=== PATIENT | female | born 1960 | race Caucasian/White ===

== ENCOUNTER 2019-02-08 05:18 | Observation (INO) ==
--- NOTE | 2019-02-08 05:42 | Emergency Department Note ---
Disposition Clinical Impression: Abdominal pain Qualifiers: Abdominal location: left lower quadrant Qualified Code(s): R10.32 - Left lower quadrant pain Disposition: Still a Patient Forms: ED Satisfaction Letter, Work/School Release Time of Disposition: 06:57 General Adult HPI - General Stated complaint: severe pain left lower quadrant Time Seen by Provider: 02/08/19 05:34 Source: patient Limitations: no limitations Nursing Notes Reviewed: Yes Vital Signs Reviewed: Yes - History of Present Illness HPI Narrative: 58-year-old female with history of diverticulitis who presents with symptoms similar to her previous episodes of diverticulitis which were diagnosed clinically by her primary care physician. She has noted that she has had increased flareups over the last several months, that which is bring her in today started yesterday afternoon. She has been attempting use of ibuprofen without significant murmur provement in her pain. She has had several episodes of vomiting as well and has had decreased bowel movements but denies any hematochezia, melena, dysuria, hematuria, back pain, fever, chest pain or shortness of breath. She has never had a CT scan to evaluate her diverticulitis as she was previously treated clinically with resolution of her symptoms with a course of antibiotics. Pain Scale: 10 - Related Data Home Medications Medication Instructions Recorded Confirmed ALPRAZolam [Xanax 1 MG Tablet] 1 mg PO TID 12/23/17 12/23/17 Atorvastatin [Lipitor] 40 mg PO HS 12/23/17 12/23/17 Cholecalciferol (Vitamin D3) 1,000 unit PO DAILY 12/23/17 12/23/17 [Vitamin D] Lisinopril [Zestril] 20 mg PO DAILY 12/23/17 12/23/17 Metoprolol [Lopressor] 50 mg PO DAILY 12/23/17 12/23/17 [place]-3 Fatty Acids [Fish Oil 2,000 mg PO BID 12/23/17 12/23/17 Concentrate] Allergies Allergy/AdvReac Type Severity Reaction Status Date / Time codeine Allergy Vomiting Verified 12/23/17 14:22 Sulfa (Sulfonamide Allergy Hives Verified 12/23/17 14:22 Antibiotics) Review of Systems: ROS per history of present illness, all other systems reviewed and negative or normal. All systems ED: reviewed and negative except as stated. Review of Systems: As Per HPI Past Medical History - Past Medical History Medical history: Reports: COPD, hyperlipidemia, hypertension Psychiatric history: Reports: anxiety - Social History Smoking Status: Former smoker Alcohol use: Reports: rarely Drug use: Reports: none Physical Exam General: Conversant. No apparent distress. Follow commands. Appears stated age. Neck: No JVD. Trachea midline. Neck supple. Eyes: PERRL. No scleral icterus. HENT: Normocephalic and atraumatic. Moist mucus membranes. Cardiovascular: Regular rate and rhythm. Normal S1 and S2. No murmurs appreciated. Normal capillary refill. Extremities well perfused with 2+ distal pulses bilaterally. No edema. Pulmonary: Normal and equal breath sounds bilaterally, anteriorly and posteriorly. No wheezes, rales, or rhonchi. Not in respiratory distress. Speaks in full sentences. Abdomen: Soft, nondistended. Tenderness in the left lower quadrant, no guarding, rigidity or rebound tenderness. Neuro: Alert and oriented x3. No slurred speech. No focal deficits noted. Skin: No rashes noted on visualized skin. Musculoskeletal: No bony abnormalities visualized. Moves all extremities. Psych: Normal mood. Pleasant. Makes appropriate eye contact. - General Limitations: no limitations General appearance: alert, in no apparent distress Course Vital Signs Temperature 97.5 F L 02/08/19 05:34 Pulse Rate 76 02/08/19 05:34 Respiratory Rate 20 02/08/19 05:34 Blood Pressure 181/96 02/08/19 05:34 O2 Sat by Pulse Oximetry 95 02/08/19 05:34 Temperature 97.5 F L 02/08/19 05:34 Pulse Rate 76 02/08/19 05:34 Respiratory Rate 20 02/08/19 05:34 Blood Pressure 181/96 02/08/19 05:34 O2 Sat by Pulse Oximetry 95 02/08/19 05:34 Oxygen Delivery Oxygen Delivery Room Air Medical Decision Making - [facility] Narrative Medical decision making narrative: 58-year-old female who presents the emergency department with complaints of left lower quadrant pain. Vital signs are stable upon arrival and she is afebrile. She does appear in moderate pain predominantly in the left lower quadrant. There is no evidence of guarding or rigidity. She has had several instances of vomiting at whole but at this point does not appear dry. The patient has had several episodes of diverticulitis which is been clinically diagnosed and she has not had a CT abdomen/pelvis to evaluate for any other intra-abdominal pathologies we will evaluate with imaging today. Also obtain CBC, BMP and LFTs. Patient has no significant leukocytosis or electrolyte abnormality. She has no anemia. LFTs normal. She does have slight increase in her creatinine up to 1.25 without prior history of CKD. She was given 1 L fluid bolus, Zofran and Toradol. The patient was signed out to the [facility] physicians, Dr. Mike and Dr. Lr. She is pending urinalysis and CT abdomen/pelvis. Please see their documentation for final disposition, likely home with follow-up with primary care versus GI. - Medical Records Medical records reviewed: Yes I reviewed the patient's medical records. - Lab Data Lab results reviewed: Yes I reviewed the patient's lab results. Result diagrams: 02/08/19 05:45 02/08/19 05:45 Lab Results 02/08/19 02/08/19 Range/Units 05:45 05:45 WBC 10.9 (4.3-11.1) K/mcL RBC 4.49 (3.82-4.97) M/mcL Hgb 13.4 (11.5-15.4) g/dL Hct 40.2 (35.3-44.9) % MCV 89.5 (83.0-100.0) fL MCH 29.8 (28.0-33.3) pg MCHC 33.3 (31.6-35.5) g/dL RDW 11.8 (11.5-14.5) % Plt Count 156 (140-400) K/mcL MPV 12.2 (9.4-12.4) fL Immature Gran % 0.4 (0-4) % Seg Neutrophils % 71.9 % Lymphocytes % 16.2 % Monocytes % 8.4 % Eosinophils % 2.8 % Basophils % 0.3 % Neutrophils # 7.8 (1.6-8.9) K/mcL Lymphocytes # 1.8 (0.6-4.6) K/mcL Monocytes # 0.9 (0.0-1.3) K/mcL Eosinophils # 0.3 (0.0-0.6) K/mcL Basophils # 0.0 (0.0-0.2) K/mcL Sodium 142 (136-145) mEq/L Potassium 4.1 (3.5-5.1) mEq/L Chloride 103 (98-107) mEq/L Carbon Dioxide 29 (23-29) mEq/L BUN 26 H (6-20) mg/dL Creatinine 1.25 H (0.60-1.20) mg/dL Est GFR ( Amer) 53 L (> 60) Est GFR (Non-Af Amer) 44 L (> 60) BUN/Creatinine Ratio 21 (6-26) Glucose 116 H (70-105) mg/dL Calculated Osmolality 300 (280-300) Calcium 10.1 (8.6-10.3) mg/dL Total Bilirubin 0.4 (0.3-1.0) mg/dL Direct Bilirubin 0.1 (0.0-0.2) mg/dL Indirect Bilirubin 0.3 (0.0-1.2) mg/dL AST 18 (13-39) Units/L ALT 13 (7-52) Units/L Alkaline Phosphatase 77 (34-104) Units/L Serum Total Protein 6.9 (6.4-8.9) g/dL Albumin 4.2 (3.5-5.7) g/dL Globulin 2.7 (2.4-3.5) g/dL Albumin/Globulin Ratio 1.6 (1.1-2.2) Lipase 37 (11-82) Units/L
[2019-02-08] MEDS ORDERED: Isovue-370 500 ML BOTTLE IVP ONE (05:50)
[2019-02-08] MEDS ORDERED: Ondansetron 4 MG/2 ML VIAL IVP STA (05:51)
[2019-02-08] MEDS ORDERED: *HR* FentaNYL (PF) 100 MCG/2 ML VIAL IVP ONE ×5 (05:51→11:54)
[2019-02-08 05:59] LABS: Basophils % 0.3 %; Eosinophils # 0.3 K/mcL (0.0-0.6); Eosinophils % 2.8 %; Hematocrit 40.2 % (35.3-44.9); Hemoglobin 13.4 g/dL (11.5-15.4); Immature Granulocytes % 0.4 % (0-4); Lymphocytes # 1.8 K/mcL (0.6-4.6); Lymphocytes % 16.2 %; Mean Corpuscular HGB Conc 33.3 g/dL (31.6-35.5); Mean Corpuscular Hemoglobin 29.8 pg (28.0-33.3); Mean Corpuscular Volume 89.5 fL (83.0-100.0); Mean Platelet Volume 12.2 fL (9.4-12.4); Monocytes # 0.9 K/mcL (0.0-1.3); Monocytes % 8.4 %; Neutrophils # 7.8 K/mcL (1.6-8.9); Platelet Count 156 K/mcL (140-400); Red Blood Count 4.49 M/mcL (3.82-4.97); Red Cell Distribution Width 11.8 % (11.5-14.5); Segmented Neutrophils % 71.9 %; White Blood Count 10.9 K/mcL (4.3-11.1)
[2019-02-08] MEDS ORDERED: Ketorolac 15 MG/ML VIAL IVP ONE (06:07)
--- NOTE | 2019-02-08 06:10 | Emergency Department Note ---
Disposition Clinical Impression: Abdominal pain Qualifiers: Abdominal location: left lower quadrant Qualified Code(s): R10.32 - Left lower quadrant pain Disposition: Still a Patient Condition: Fair Referrals: Dary Mckeon [Primary Care Provider] - Forms: ED Satisfaction Letter, Work/School Release Time of Disposition: 06:57 General Adult HPI - General Chief complaint: ED Abdominal Pain Stated complaint: severe pain left lower quadrant Time Seen by Provider: 02/08/19 05:34 Source: patient Limitations: no limitations Nursing Notes Reviewed: Yes Vital Signs Reviewed: Yes - History of Present Illness Pain Scale: 10 - Related Data Home Medications Medication Instructions Recorded Confirmed ALPRAZolam [Xanax 1 MG Tablet] 1 mg PO TID 12/23/17 12/23/17 Atorvastatin [Lipitor] 40 mg PO HS 12/23/17 12/23/17 Cholecalciferol (Vitamin D3) 1,000 unit PO DAILY 12/23/17 12/23/17 [Vitamin D] Lisinopril [Zestril] 20 mg PO DAILY 12/23/17 12/23/17 Metoprolol [Lopressor] 50 mg PO DAILY 12/23/17 12/23/17 [place]-3 Fatty Acids [Fish Oil 2,000 mg PO BID 12/23/17 12/23/17 Concentrate] Allergies Allergy/AdvReac Type Severity Reaction Status Date / Time codeine Allergy Vomiting Verified 12/23/17 14:22 Sulfa (Sulfonamide Allergy Hives Verified 12/23/17 14:22 Antibiotics) Past Medical History - Past Medical History Medical history: Reports: COPD, hyperlipidemia, hypertension Psychiatric history: Reports: anxiety - Social History Smoking Status: Former smoker Alcohol use: Reports: rarely Drug use: Reports: none Physical Exam - General Limitations: no limitations General appearance: alert, in no apparent distress Course Vital Signs Temperature 97.5 F L 02/08/19 05:34 Pulse Rate 76 02/08/19 05:34 Respiratory Rate 20 02/08/19 05:34 Blood Pressure 181/96 02/08/19 05:34 O2 Sat by Pulse Oximetry 95 02/08/19 05:34 Temperature 97.5 F L 02/08/19 05:34 Pulse Rate 76 02/08/19 05:34 Respiratory Rate 20 02/08/19 05:34 Blood Pressure 181/96 02/08/19 05:34 O2 Sat by Pulse Oximetry 95 02/08/19 05:34 Oxygen Delivery Oxygen Delivery Room Air Medical Decision Making - Medical Records Medical records reviewed: Yes I reviewed the patient's medical records. - Lab Data Lab results reviewed: Yes I reviewed the patient's lab results. Result diagrams: 02/08/19 05:45 02/08/19 05:45 Lab Results 02/08/19 02/08/19 Range/Units 05:45 05:45 WBC 10.9 (4.3-11.1) K/mcL RBC 4.49 (3.82-4.97) M/mcL Hgb 13.4 (11.5-15.4) g/dL Hct 40.2 (35.3-44.9) % MCV 89.5 (83.0-100.0) fL MCH 29.8 (28.0-33.3) pg MCHC 33.3 (31.6-35.5) g/dL RDW 11.8 (11.5-14.5) % Plt Count 156 (140-400) K/mcL MPV 12.2 (9.4-12.4) fL Immature Gran % 0.4 (0-4) % Seg Neutrophils % 71.9 % Lymphocytes % 16.2 % Monocytes % 8.4 % Eosinophils % 2.8 % Basophils % 0.3 % Neutrophils # 7.8 (1.6-8.9) K/mcL Lymphocytes # 1.8 (0.6-4.6) K/mcL Monocytes # 0.9 (0.0-1.3) K/mcL Eosinophils # 0.3 (0.0-0.6) K/mcL Basophils # 0.0 (0.0-0.2) K/mcL Sodium 142 (136-145) mEq/L Potassium 4.1 (3.5-5.1) mEq/L Chloride 103 (98-107) mEq/L Carbon Dioxide 29 (23-29) mEq/L BUN 26 H (6-20) mg/dL Creatinine 1.25 H (0.60-1.20) mg/dL Est GFR ( Amer) 53 L (> 60) Est GFR (Non-Af Amer) 44 L (> 60) BUN/Creatinine Ratio 21 (6-26) Glucose 116 H (70-105) mg/dL Calculated Osmolality 300 (280-300) Calcium 10.1 (8.6-10.3) mg/dL Total Bilirubin 0.4 (0.3-1.0) mg/dL Direct Bilirubin 0.1 (0.0-0.2) mg/dL Indirect Bilirubin 0.3 (0.0-1.2) mg/dL AST 18 (13-39) Units/L ALT 13 (7-52) Units/L Alkaline Phosphatase 77 (34-104) Units/L Serum Total Protein 6.9 (6.4-8.9) g/dL Albumin 4.2 (3.5-5.7) g/dL Globulin 2.7 (2.4-3.5) g/dL Albumin/Globulin Ratio 1.6 (1.1-2.2) Lipase 37 (11-82) Units/L Attestation Statement - Attestation Attestation: I, Cristofer Davis MD, personally evaluated this patient and discussed their management with the resident physician. I reviewed the resident's note and agree with the documented findings, medical decision making, and plan of care. 58-year-old female persisted emergency department with a complaint of left lower quadrant abdominal pain which started about 12 hours prior to arrival. Patient states that she has a history of recurrent left lower quadrant abdominal pain and has been diagnosed with diverticulitis. She has had problems intermittently over the past 2 years but states it is getting more frequent recently. She has never had a CT scan of her abdomen to officially diagnose the diverticulitis, it is always just been diagnosed clinically. She states that her primary care doctor usually gives her antibiotics and it clears up. Often she does not take any medication and it resolves on its on within 2-3 days. She denies any fever. No diarrhea. Some nausea and vomiting. No melena, hematemesis, or hematochezia. No urinary symptoms. On examination patient is a well-developed well-nourished well-appearing female in no acute distress. She is alert and oriented 3. There is no cyanosis or diaphoresis. Breath sounds are clear and equal bilaterally. Her rate and rhythm. Abdomen is soft with normal bowel sounds. Mild to moderate left lower quadrant tenderness on direct palpation. Labs reviewed. CT pending. At morning shift change patient is signed out to the oncoming dayshift team, Dr. Lr and Dr. Rock.
[2019-02-08 06:21] LABS: Albumin 4.2 g/dL (3.5-5.7); Albumin/Globulin Ratio 1.6 (1.1-2.2); Bilirubin,Direct 0.1 mg/dL (0.0-0.2); Bilirubin,Indirect 0.3 mg/dL (0.0-1.2); Bilirubin,Total 0.4 mg/dL (0.3-1.0); Calcium 10.1 mg/dL (8.6-10.3); Globulin 2.7 g/dL (2.4-3.5); Potassium 4.1 mEq/L (3.5-5.1); Total Protein 6.9 g/dL (6.4-8.9)
[2019-02-08] MEDS ORDERED: 0.9 % Sodium Chloride 1,000 ML IVC STA (06:35)
--- NOTE | 2019-02-08 07:08 | Emergency Department Note ---
Disposition Clinical Impression: DO (acute kidney injury) Abdominal pain Qualifiers: Abdominal location: left lower quadrant Qualified Code(s): R10.32 - Left lower quadrant pain Disposition: Admitted As Inpatient Condition: Fair Time of Disposition: 13:36 General Adult HPI - General Chief complaint: ED Abdominal Pain Stated complaint: severe pain left lower quadrant Time Seen by Provider: 02/08/19 05:34 Source: patient Limitations: no limitations Nursing Notes Reviewed: Yes Vital Signs Reviewed: Yes - History of Present Illness Pain Scale: 10 - Related Data Home Medications Medication Instructions Recorded Confirmed ALPRAZolam [Xanax 1 MG Tablet] 1 mg PO TID 12/23/17 02/08/19 Atorvastatin [Lipitor] 40 mg PO HS 12/23/17 02/08/19 Cholecalciferol (Vitamin D3) 1,000 unit PO DAILY 12/23/17 02/08/19 [Vitamin D] Lisinopril [Zestril] 20 mg PO DAILY 12/23/17 02/08/19 Metoprolol [Lopressor] 50 mg PO DAILY 12/23/17 02/08/19 [place] [facility]-3 Fatty Acids [Fish Oil 2,000 mg PO BID 12/23/17 02/08/19 Concentrate] Allergies Allergy/AdvReac Type Severity Reaction Status Date / Time codeine Allergy Vomiting Verified 12/23/17 14:22 Sulfa (Sulfonamide Allergy Hives Verified 12/23/17 14:22 Antibiotics) Past Medical History - Past Medical History Medical history: Reports: COPD, hyperlipidemia, hypertension Psychiatric history: Reports: anxiety - Social History Smoking Status: Former smoker Alcohol use: Reports: rarely Drug use: Reports: none Physical Exam - General Limitations: no limitations General appearance: alert, in no apparent distress Course Vital Signs Temperature 97.5 F L 02/08/19 05:34 Pulse Rate 76 02/08/19 05:34 Respiratory Rate 20 02/08/19 05:34 Blood Pressure 181/96 02/08/19 05:34 O2 Sat by Pulse Oximetry 95 02/08/19 05:34 Temperature 97.5 F L 02/08/19 05:34 Pulse Rate 81 02/08/19 12:06 Respiratory Rate 18 02/08/19 12:20 Blood Pressure 131/78 02/08/19 12:20 O2 Sat by Pulse Oximetry 97 02/08/19 12:06 Oxygen Delivery Oxygen Delivery Nasal Cannula Medical Decision Making - MDM Narrative Medical decision making narrative: Abdomen/Pelvis CT 02/08/19 05:50 IMPRESSION: 1. 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 Associated perinephric stranding and fluid, concerning for calyceal rupture. 2. Diverticulosis without evidence of diverticulitis. 3. Grade 2 anterolisthesis of L4 on L5. Findings were discussed with Dr.Sam Tee at 8:52 am on 02/08/2019. D/ : / 02/08/2019 08:56:50 Carito Benjamin MD / Radha Wang Interpreting Provider: Carito Benjamin MD 0900 hrs. were going to speak with urology about this and determine best disposition. 0924 hrs.: Spoke with urology that asked that we speak with IR and see if the patella nephrostomy tube in her and they are in agreement. Patient's agreement with plan. Also to cover with antibiotics. And then admit through hospitalist. 1021 hrs. after speaking with urology, Dr. Francis and hospitalist Dr. Lees they have agreed to admit the patient here urology says they will also speak with his colleagues in [place] as she will probably need final intervention done there. Patient's in agreement with this plan. - Lab Data Result diagrams: 02/08/19 05:45 02/08/19 05:45 Lab Results 02/08/19 02/08/19 02/08/19 Range/Units 05:45 05:45 08:40 WBC 10.9 (4.3-11.1) K/mcL RBC 4.49 (3.82-4.97) M/mcL Hgb 13.4 (11.5-15.4) g/dL Hct 40.2 (35.3-44.9) % MCV 89.5 (83.0-100.0) fL MCH 29.8 (28.0-33.3) pg MCHC 33.3 (31.6-35.5) g/dL RDW 11.8 (11.5-14.5) % Plt Count 156 (140-400) K/mcL MPV 12.2 (9.4-12.4) fL Immature Gran % 0.4 (0-4) % Seg Neutrophils % 71.9 % Lymphocytes % 16.2 % Monocytes % 8.4 % Eosinophils % 2.8 % Basophils % 0.3 % Neutrophils # 7.8 (1.6-8.9) K/mcL Lymphocytes # 1.8 (0.6-4.6) K/mcL Monocytes # 0.9 (0.0-1.3) K/mcL Eosinophils # 0.3 (0.0-0.6) K/mcL Basophils # 0.0 (0.0-0.2) K/mcL PT (9.4-12.1) Seconds INR Sodium 142 (136-145) mEq/L Potassium 4.1 (3.5-5.1) mEq/L Chloride 103 (98-107) mEq/L Carbon Dioxide 29 (23-29) mEq/L BUN 26 H (6-20) mg/dL Creatinine 1.25 H (0.60-1.20) mg/dL Est GFR ( Amer) 53 L (> 60) Est GFR (Non-Af Amer) 44 L (> 60) BUN/Creatinine Ratio 21 (6-26) Glucose 116 H (70-105) mg/dL Calculated Osmolality 300 (280-300) Calcium 10.1 (8.6-10.3) mg/dL Total Bilirubin 0.4 (0.3-1.0) mg/dL Direct Bilirubin 0.1 (0.0-0.2) mg/dL Indirect Bilirubin 0.3 (0.0-1.2) mg/dL AST 18 (13-39) Units/L ALT 13 (7-52) Units/L Alkaline Phosphatase 77 (34-104) Units/L Serum Total Protein 6.9 (6.4-8.9) g/dL Albumin 4.2 (3.5-5.7) g/dL Globulin 2.7 (2.4-3.5) g/dL Albumin/Globulin Ratio 1.6 (1.1-2.2) Lipase 37 (11-82) Units/L Urine Color Yellow (Yellow) Urine Clarity Cloudy A (Clear) Urine pH 7.5 (5.0-8.0) pH Units Ur Specific [place] 1.027 H (1.010-1.025) Urine Protein Negative (Neg-Trace) mg/dL Urine Glucose (UA) Normal (Normal) mg/dL Urine Ketones Negative (Negative) mg/dL Urine Blood Negative (Negative) Urine Nitrite Negative (Negative) Urine Bilirubin Negative (Negative) Urine Urobilinogen Normal (Normal) mg/dL Ur Leukocyte Esterase Negative (Negative) Urine Microscopic RBC 0-3 (0-3) per hpf Urine Microscopic WBC 0-3 (0-3) per hpf Ur Squamous Epith Cells Moderate H (None-Few) per lpf Urine Bacteria None Seen (None-Few) per hpf Hyaline Casts None Seen (None-Few) per lpf Ur Culture Indicated? NO (NO) 02/08/19 Range/Units 10:54 WBC (4.3-11.1) K/mcL RBC (3.82-4.97) M/mcL Hgb (11.5-15.4) g/dL Hct (35.3-44.9) % MCV (83.0-100.0) fL MCH (28.0-33.3) pg MCHC (31.6-35.5) g/dL RDW (11.5-14.5) % Plt Count (140-400) K/mcL MPV (9.4-12.4) fL Immature Gran % (0-4) % Seg Neutrophils % % Lymphocytes % % Monocytes % % Eosinophils % % Basophils % % Neutrophils # (1.6-8.9) K/mcL Lymphocytes # (0.6-4.6) K/mcL Monocytes # (0.0-1.3) K/mcL Eosinophils # (0.0-0.6) K/mcL Basophils # (0.0-0.2) K/mcL PT 11.3 (9.4-12.1) Seconds INR 1.0 Sodium (136-145) mEq/L Potassium (3.5-5.1) mEq/L Chloride (98-107) mEq/L Carbon Dioxide (23-29) mEq/L BUN (6-20) mg/dL Creatinine (0.60-1.20) mg/dL Est GFR ( Amer) (> 60) Est GFR (Non-Af Amer) (> 60) BUN/Creatinine Ratio (6-26) Glucose (70-105) mg/dL Calculated Osmolality (280-300) Calcium (8.6-10.3) mg/dL Total Bilirubin (0.3-1.0) mg/dL Direct Bilirubin (0.0-0.2) mg/dL Indirect Bilirubin (0.0-1.2) mg/dL AST (13-39) Units/L ALT (7-52) Units/L Alkaline Phosphatase (34-104) Units/L Serum Total Protein (6.4-8.9) g/dL Albumin (3.5-5.7) g/dL Globulin (2.4-3.5) g/dL Albumin/Globulin Ratio (1.1-2.2) Lipase (11-82) Units/L Urine Color (Yellow) Urine Clarity (Clear) Urine pH (5.0-8.0) pH Units Ur Specific [place] (1.010-1.025) Urine Protein (Neg-Trace) mg/dL Urine Glucose (UA) (Normal) mg/dL Urine Ketones (Negative) mg/dL Urine Blood (Negative) Urine Nitrite (Negative) Urine Bilirubin (Negative) Urine Urobilinogen (Normal) mg/dL Ur Leukocyte Esterase (Negative) Urine Microscopic RBC (0-3) per hpf Urine Microscopic WBC (0-3) per hpf Ur Squamous Epith Cells (None-Few) per lpf Urine Bacteria (None-Few) per hpf Hyaline Casts (None-Few) per lpf Ur Culture Indicated? (NO) Attestation Statement - Attestation Attestation: This documentation is done with the assistance of Dragon dictation. Despite efforts made to ensure accuracy, there may be inaccuracies in umbrella cutter or spelling and typographical errors. I examined this patient and my medical decision-making was reviewed with the Resident Physician. I agree with the documented findings, disposition and treatment plan as described except to the extent set forth below. Patient was seen and evaluated by the evening ER physician Dr. Davis and Dr. domínguez, was signed out us at 7 AM. She has had a history of left lower quadrant pain with suspicion for diverticulitis was never had an official diagnosis. Her pain is improved and she is waiting a CAT scan but now she says she would like something for pain's regular some that no significant for nausea some fluids and she has a mild DO and awaiting CT scan. She does not want stay in the hospital. She has not followed with GI, her primary care physician is a success today outpatient colonoscopy. And I told her we can give her information on that also. We will await her CT scan and then reassess and then determine best disposition. She is in agreement this plan. They she was seen by myself and Dr. Kin Bernal. I agree with his evaluation management plan, suprascapular the patient's stay.
--- NOTE | 2019-02-08 07:09 | Emergency Department Note ---
Disposition Clinical Impression: DO (acute kidney injury) Abdominal pain Qualifiers: Abdominal location: left lower quadrant Qualified Code(s): R10.32 - Left lower quadrant pain Disposition: Admitted As Inpatient Condition: Fair Time of Disposition: 10:33 Abdominal Pain HPI - General Chief Complaint: ED Abdominal Pain Stated Complaint: severe pain left lower quadrant Time Seen by Provider: 02/08/19 05:34 Source: patient - History of Present Illness HPI Narrative: Patient received in signout from overnight physician staff of Dr. Cristofer Torres and Dr. Rose Marie Acevedo. Patient's past medical history of diverticulitis with multiple flareups recently. Patient labs significant for mildly elevated creatinine at 1.26 with estimated GFR 44. Patient will undergo CAT scan for further evaluation of presumed diverticulosis. Upon my initial evaluation patient is alert and oriented, she is complaining of continued pain in her abdomen, she denies nausea at this time. Patient has not had IV fluids started. 1 L ordered with 50 g of fentanyl. Patient states that she does not want to come in the hospital would prefer outpatient management. She does not follow with GI. Final disposition pending CT scan. Pain Scale: 10 - Related Data Home Medications Medication Instructions Recorded Confirmed ALPRAZolam [Xanax 1 MG Tablet] 1 mg PO TID 12/23/17 02/08/19 Atorvastatin [Lipitor] 40 mg PO HS 12/23/17 02/08/19 Cholecalciferol (Vitamin D3) 1,000 unit PO DAILY 12/23/17 02/08/19 [Vitamin D] Lisinopril [Zestril] 20 mg PO DAILY 12/23/17 02/08/19 Metoprolol [Lopressor] 50 mg PO DAILY 12/23/17 02/08/19 [place]-3 Fatty Acids [Fish Oil 2,000 mg PO BID 12/23/17 02/08/19 Concentrate] Allergies Allergy/AdvReac Type Severity Reaction Status Date / Time codeine Allergy Vomiting Verified 12/23/17 14:22 Sulfa (Sulfonamide Allergy Hives Verified 12/23/17 14:22 Antibiotics) Abdominal Pain PMH - Past Medical History Medical history: Reports: COPD, hyperlipidemia, hypertension Female Surgical History: Reports: hysterectomy Psychiatric history: Reports: anxiety - Social History Smoking status: Former smoker Alcohol use: Reports: rarely Drug use: Reports: none Physical Exam - General Limitations: no limitations General appearance: alert, in no apparent distress Course Vital Signs Temperature 97.5 F L 02/08/19 05:34 Pulse Rate 76 02/08/19 05:34 Respiratory Rate 20 02/08/19 05:34 Blood Pressure 181/96 02/08/19 05:34 O2 Sat by Pulse Oximetry 95 02/08/19 05:34 Temperature 98.0 F 02/08/19 14:03 Pulse Rate 83 02/08/19 14:03 Respiratory Rate 15 02/08/19 14:03 Blood Pressure 124/75 02/08/19 14:03 O2 Sat by Pulse Oximetry 92 02/08/19 14:03 Oxygen Delivery Oxygen Delivery Nasal Cannula Abdominal Pain - MDM Narrative Medical decision making narrative: Patient CT imaging shows hydronephrosis with hydroureter and concern for herniation of the ureter through the sacral foramen. Concern for calyceal rupture. Contacted Dr. Francis in urology who recommends IR with nephrostomy tube placement. Dr. Francis consulted and is following. IR consult and will place nephrostomy tube Patient admitted to hospitalist medicine service for further evaluation and management with above-stated consults. Patient pain management here in the ED Patient verbalizes understanding and agreement this plan given options for admission to this facility versus transfer to [place] or [facility]. Patient states her desire to remain at this facility for further management at this time. - Lab Data Lab results reviewed: Yes I reviewed the patient's lab results. Result diagrams: 02/08/19 05:45 02/08/19 05:45 Lab Results 02/08/19 02/08/19 02/08/19 Range/Units 05:45 05:45 08:40 WBC 10.9 (4.3-11.1) K/mcL RBC 4.49 (3.82-4.97) M/mcL Hgb 13.4 (11.5-15.4) g/dL Hct 40.2 (35.3-44.9) % MCV 89.5 (83.0-100.0) fL MCH 29.8 (28.0-33.3) pg MCHC 33.3 (31.6-35.5) g/dL RDW 11.8 (11.5-14.5) % Plt Count 156 (140-400) K/mcL MPV 12.2 (9.4-12.4) fL Immature Gran % 0.4 (0-4) % Seg Neutrophils % 71.9 % Lymphocytes % 16.2 % Monocytes % 8.4 % Eosinophils % 2.8 % Basophils % 0.3 % Neutrophils # 7.8 (1.6-8.9) K/mcL Lymphocytes # 1.8 (0.6-4.6) K/mcL Monocytes # 0.9 (0.0-1.3) K/mcL Eosinophils # 0.3 (0.0-0.6) K/mcL Basophils # 0.0 (0.0-0.2) K/mcL PT (9.4-12.1) Seconds INR Sodium 142 (136-145) mEq/L Potassium 4.1 (3.5-5.1) mEq/L Chloride 103 (98-107) mEq/L Carbon Dioxide 29 (23-29) mEq/L BUN 26 H (6-20) mg/dL Creatinine 1.25 H (0.60-1.20) mg/dL Est GFR ( Amer) 53 L (> 60) Est GFR (Non-Af Amer) 44 L (> 60) BUN/Creatinine Ratio 21 (6-26) Glucose 116 H (70-105) mg/dL Calculated Osmolality 300 (280-300) Calcium 10.1 (8.6-10.3) mg/dL Total Bilirubin 0.4 (0.3-1.0) mg/dL Direct Bilirubin 0.1 (0.0-0.2) mg/dL Indirect Bilirubin 0.3 (0.0-1.2) mg/dL AST 18 (13-39) Units/L ALT 13 (7-52) Units/L Alkaline Phosphatase 77 (34-104) Units/L Serum Total Protein 6.9 (6.4-8.9) g/dL Albumin 4.2 (3.5-5.7) g/dL Globulin 2.7 (2.4-3.5) g/dL Albumin/Globulin Ratio 1.6 (1.1-2.2) Lipase 37 (11-82) Units/L Urine Color Yellow (Yellow) Urine Clarity Cloudy A (Clear) Urine pH 7.5 (5.0-8.0) pH Units Ur Specific [place] 1.027 H (1.010-1.025) Urine Protein Negative (Neg-Trace) mg/dL Urine Glucose (UA) Normal (Normal) mg/dL Urine Ketones Negative (Negative) mg/dL Urine Blood Negative (Negative) Urine Nitrite Negative (Negative) Urine Bilirubin Negative (Negative) Urine Urobilinogen Normal (Normal) mg/dL Ur Leukocyte Esterase Negative (Negative) Urine Microscopic RBC 0-3 (0-3) per hpf Urine Microscopic WBC 0-3 (0-3) per hpf Ur Squamous Epith Cells Moderate H (None-Few) per lpf Urine Bacteria None Seen (None-Few) per hpf Hyaline Casts None Seen (None-Few) per lpf Ur Culture Indicated? NO (NO) 02/08/19 Range/Units 10:54 WBC (4.3-11.1) K/mcL RBC (3.82-4.97) M/mcL Hgb (11.5-15.4) g/dL Hct (35.3-44.9) % MCV (83.0-100.0) fL MCH (28.0-33.3) pg MCHC (31.6-35.5) g/dL RDW (11.5-14.5) % Plt Count (140-400) K/mcL MPV (9.4-12.4) fL Immature Gran % (0-4) % Seg Neutrophils % % Lymphocytes % % Monocytes % % Eosinophils % % Basophils % % Neutrophils # (1.6-8.9) K/mcL Lymphocytes # (0.6-4.6) K/mcL Monocytes # (0.0-1.3) K/mcL Eosinophils # (0.0-0.6) K/mcL Basophils # (0.0-0.2) K/mcL PT 11.3 (9.4-12.1) Seconds INR 1.0 Sodium (136-145) mEq/L Potassium (3.5-5.1) mEq/L Chloride (98-107) mEq/L Carbon Dioxide (23-29) mEq/L BUN (6-20) mg/dL Creatinine (0.60-1.20) mg/dL Est GFR ( Amer) (> 60) Est GFR (Non-Af Amer) (> 60) BUN/Creatinine Ratio (6-26) Glucose (70-105) mg/dL Calculated Osmolality (280-300) Calcium (8.6-10.3) mg/dL Total Bilirubin (0.3-1.0) mg/dL Direct Bilirubin (0.0-0.2) mg/dL Indirect Bilirubin (0.0-1.2) mg/dL AST (13-39) Units/L ALT (7-52) Units/L Alkaline Phosphatase (34-104) Units/L Serum Total Protein (6.4-8.9) g/dL Albumin (3.5-5.7) g/dL Globulin (2.4-3.5) g/dL Albumin/Globulin Ratio (1.1-2.2) Lipase (11-82) Units/L Urine Color (Yellow) Urine Clarity (Clear) Urine pH (5.0-8.0) pH Units Ur Specific [place] (1.010-1.025) Urine Protein (Neg-Trace) mg/dL Urine Glucose (UA) (Normal) mg/dL Urine Ketones (Negative) mg/dL Urine Blood (Negative) Urine Nitrite (Negative) Urine Bilirubin (Negative) Urine Urobilinogen (Normal) mg/dL Ur Leukocyte Esterase (Negative) Urine Microscopic RBC (0-3) per hpf Urine Microscopic WBC (0-3) per hpf Ur Squamous Epith Cells (None-Few) per lpf Urine Bacteria (None-Few) per hpf Hyaline Casts (None-Few) per lpf Ur Culture Indicated? (NO) - Radiology Data Radiology results reviewed: Yes I reviewed the patient's radiology results. Abdomen/Pelvis CT 02/08/19 05:50 IMPRESSION: 1. 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 Associated perinephric stranding and fluid, concerning for calyceal rupture. 2. Diverticulosis without evidence of diverticulitis. 3. Grade 2 anterolisthesis of L4 on L5. Findings were discussed with Dr.Sam Tee at 8:52 am on 02/08/2019. D/ / 02/08/2019 08:56:50 Carito Benjamin MD / Radha Wang Interpreting Provider: Carito Benjamin MD
[2019-02-08 09:00] LABS: Bilirubin,Urine Negative (Negative); Blood,Urine Negative (Negative); Clarity,Urine Cloudy (Clear); Color,Urine Yellow (Yellow); Glucose,Urine (UA) Normal (Normal); Ketones,Urine Negative (Negative); Leukocyte Esterase,Urine Negative (Negative); Nitrite,Urine Negative (Negative); PH,Urine 7.5 pH Units (5.0-8.0); Protein,Urine Negative (Neg-Trace); Specific Gravity,Urine 1.027 (1.010-1.025); Urobilinogen,Urine Normal (Normal)
[2019-02-08 09:04] LABS: Bacteria,Urine None Seen per hpf (None-Few); Hyaline Casts,Urine None Seen per lpf (None-Few); RBC,Urine 0-3 per hpf (0-3); Squamous Epithelial Cell,Urine Moderate per lpf (None-Few); WBC,Urine 0-3 per hpf (0-3)
[2019-02-08] MEDS ORDERED: Piperacillin/Tazobactam 3.375 GM in 0.9 % Sodium Chloride Mini Bag 100 ML IVPB ONE (09:17)
--- NOTE | 2019-02-08 10:28 | Event Note ---
Date of Encounter: 02/08/19 Time of Encounter: 10:21 Patient updated on plan of care by myself as well as the admitter Dr. Kim. This case was discussed with the supervisor publications production urologist Dr. Francis. Discussed initial workup and intervention for her hydronephrosis and mechanical ureteral obstruction. It appears that she has a herniation of her ureter into the sciatic foramen which appears to be a rare issue. His current recommendation is to have Interventional Radiology place a nephrostomy tube. We reviewed a case report that demonstrated worsening renal function when a ureteral stent was placed. This was discussed with urology who agrees there is no reason to have ureteral stent placement currently. The patient at one point was considering being transferred to [place] for evaluation and intervention. Dr. Kim and myself had a long, shared decision making discussion with the patient with family present. She understands that we will have IR place a nephrostomy tube to relieve the acute pressure, have urology evaluate her from a surgical perspective and determine the appropriate circumstances under when/if she will require surgical correction. At this point the patient was comfortable staying here for admission for nephrostomy tube placement and admission. The patient was instructed not to take her home lisinopril due to her elevated creatinine and to avoid NSAID medications. She is to remain NPO in preparation for nephrostomy tube placement. All questions were answered.
[2019-02-08] MEDS ORDERED: Naloxone 0.4 MG/ML INJ IVP PRN (10:34)
[2019-02-08] MEDS ORDERED: Ondansetron 4 MG/2 ML VIAL IVP PRN (10:34)
[2019-02-08] MEDS ORDERED: Acetaminophen 325 MG TABLET PO PRN (10:34)
[2019-02-08] MEDS ORDERED: *HR* FentaNYL (PF) 100 MCG/2 ML VIAL IVP PRN (10:39)
--- NOTE | 2019-02-08 10:45 | Urology - Consult Note ---
Date of Encounter: 02/08/19 Time of Encounter: 10:42 - Assessment and Plan (1) Hydronephrosis, left Current Visit: Yes Status: Acute Assessment and plan: 58-year-old woman with a history of left hydronephrosis. She has evidence of a hernia of her ureter through the sciatic foramen. We discussed the findings in detail. She is having severe flank pain. I recommend proceeding with a left nephrostomy tube placement. We reviewed all risks of the procedure. We discussed definitive repair. I think this would likely require a tertiary care center. We can temporize things with the nephrostomy tube. We can then arrange for follow-up with a higher level center to provide this surgery in the future. I answered all of her questions as well as her son's questions. They are willing to proceed. (2) Sciatic hernia Current Visit: Yes Status: Acute Urology CN:TRISTAN Consult date: 02/08/19 Reason for consult Urology: Hydronephrosis Requesting physician: Gen Tee History of present illness: 58-year-old woman presents with concern for left lower quadrant and left flank pain. The pain has been intermittent for the last 3 weeks, but it became more severe yesterday. She attributed it to her known history of diverticulitis. However the pain became very severe. It is sharp. She rates it a very high. She came to the emergency room. A CT scan of the abdomen and pelvis was obtained with IV contrast. This showed left hydroureteronephrosis. There is evidence of left sciatic foramen hernia of the ureter. We discussed the CT scan findings in detail. I reviewed her imaging and labs. Past Med Surg Social Fam HX - Past Medical History Medical history: COPD, hyperlipidemia, hypertension Psychiatric history: anxiety - Social History Smoking Status: Former smoker Alcohol use: rarely Drug use: none - Family History Mother Hx Family Cardiac Disorders: Yes (Hypertension) Hx Family Endocrine Disorder: Yes (DM) Medications and Allergies ALPRAZolam [Xanax 1 MG Tablet] 1 mg PO TID 12/23/17 [History] Atorvastatin [Lipitor] 40 mg PO HS 12/23/17 [History] Cholecalciferol (Vitamin D3) [Vitamin D] 1,000 unit PO DAILY 12/23/17 [History] Lisinopril [Zestril] 20 mg PO DAILY 12/23/17 [History] Metoprolol [Lopressor] 50 mg PO DAILY 12/23/17 [History] [place]-3 Fatty Acids [Fish Oil Concentrate] 2,000 mg PO BID 12/23/17 [History] Allergy/AdvReac Type Severity Reaction Status Date / Time codeine Allergy Vomiting Verified 12/23/17 14:22 Sulfa (Sulfonamide Allergy Hives Verified 12/23/17 14:22 Antibiotics) Review of Systems - Constitutional no chills, no fever(s) - EENT Nose, mouth and throat: no dizziness - Cardiovascular no chest pain - Respiratory no dyspnea - Gastrointestinal abdominal pain, no nausea, no vomiting - Genitourinary Genitourinary: flank pain, no hematuria - Musculoskeletal no back pain - Integumentary no erythema, no rash - Neurological no weakness - Psychiatric no suicidal ideation - Hematologic/Lymphatic no easy bleeding - Allergic/Immunologic no wheezing Exam Initial Vital Signs Temp Pulse Resp BP Pulse Ox 97.5 F L 76 20 181/96 95 02/08/19 05:34 02/08/19 05:34 02/08/19 05:34 02/08/19 05:34 02/08/19 05:34 - General physical appearance Present: well developed, well nourished, no distress - Eyes Absent: icteric - ENT Present: normal nares - Neck Present: trachea midline - Respiratory Present: normal respiratory effort - Cardiovascular Cardiovascular exam IM: RRR - Abdomen Abdomen: Present: soft, tender - Integumentary Present: no rash - Neurologic Present: normal coordination - Musculoskeletal Present: other (grossly normal) Urology Results - Labs 02/08/19 05:45 02/08/19 05:45 Abnormal lab results BUN 26 mg/dL (6-20) H 02/08/19 05:45 1.25 mg/dL (0.60-1.20) H 02/08/19 05:45 Est GFR ( Amer) 53 (> 60) L 02/08/19 05:45 Est GFR (Non-Af Amer) 44 (> 60) L 02/08/19 05:45 Glucose 116 mg/dL (70-105) H 02/08/19 05:45 Cloudy (Clear) A 02/08/19 08:40 Ur Specific [place] 1.027 (1.010-1.025) H 02/08/19 08:40 Ur Squamous Epith Cells Moderate per lpf (None-Few) H 02/08/19 08:40 Diabetes panel 02/08/19 Range/Units 05:45 Sodium 142 (136-145) mEq/L Potassium 4.1 (3.5-5.1) mEq/L Chloride 103 (98-107) mEq/L Carbon Dioxide 29 (23-29) mEq/L BUN 26 H (6-20) mg/dL Creatinine 1.25 H (0.60-1.20) mg/dL Glucose 116 H (70-105) mg/dL Calcium 10.1 (8.6-10.3) mg/dL AST 18 (13-39) Units/L ALT 13 (7-52) Units/L Alkaline Phosphatase 77 (34-104) Units/L Albumin 4.2 (3.5-5.7) g/dL Calcium panel 02/08/19 Range/Units 05:45 Calcium 10.1 (8.6-10.3) mg/dL Albumin 4.2 (3.5-5.7) g/dL Pituitary panel 02/08/19 Range/Units 05:45 Sodium 142 (136-145) mEq/L Potassium 4.1 (3.5-5.1) mEq/L Chloride 103 (98-107) mEq/L Carbon Dioxide 29 (23-29) mEq/L BUN 26 H (6-20) mg/dL Creatinine 1.25 H (0.60-1.20) mg/dL Glucose 116 H (70-105) mg/dL Calcium 10.1 (8.6-10.3) mg/dL Adrenal panel 02/08/19 Range/Units 05:45 Sodium 142 (136-145) mEq/L Potassium 4.1 (3.5-5.1) mEq/L Chloride 103 (98-107) mEq/L Carbon Dioxide 29 (23-29) mEq/L BUN 26 H (6-20) mg/dL Creatinine 1.25 H (0.60-1.20) mg/dL Glucose 116 H (70-105) mg/dL Calcium 10.1 (8.6-10.3) mg/dL Total Bilirubin 0.4 (0.3-1.0) mg/dL AST 18 (13-39) Units/L ALT 13 (7-52) Units/L Alkaline Phosphatase 77 (34-104) Units/L Albumin 4.2 (3.5-5.7) g/dL All other labs normal. Consult Discharge Plan - Plan Referrals: Dary Mckeon [Primary Care Provider] -
[2019-02-08] MEDS ORDERED: cefTRIAXone 1,000 MG in Water for inj. (sterile) 20 ML 10 ML IVP ONE (11:00)
--- NOTE | 2019-02-08 11:11 | Event Note ---
Date of Encounter: 02/08/19
[2019-02-08 11:28] LABS: Prothrombin Time 11.3 Seconds (9.4-12.1)
--- NOTE | 2019-02-08 11:28 | Pre-Sedation Evaluation ---
Pre-sedation evaluation - Pre-sedation checklist Date of procedure: 02/08/19 Procedure: Left nephrostomy tube insertion Recent Vitals: Last Vital Signs Temp 97.5 F L 02/08/19 05:34 Pulse 61 02/08/19 10:32 Resp 18 02/08/19 10:32 BP 160/93 02/08/19 10:32 Pulse Ox 95 02/08/19 10:32 H&P (including ROS) documented in medical record: Yes Previous reaction to sedatives/anesthetics: No Dietary Status: NPO after Midnight Airway Assessment: Patient can open mouth completely, TMJ function normal Dentition: No loose teeth or bridges Possible difficult airway: No ASA Classification *see protocol: CLASS II-Mild systemic disease Plan of Care: Pt appropriate candidate for procedure/moderate/conscious sedation, Risks/benefits of procedure/sedation discussed w/ patient/family
[2019-02-08] MEDS ORDERED: *HR* Midazolam HCl 2 MG/2 ML VIAL IVP ONE ×2 (11:30→11:55)
[2019-02-08] MEDS ORDERED: 0.9 % Sodium Chloride 500 ML ONE ×2 (11:44→11:46)
[2019-02-08] MEDS ORDERED: *HR* FentaNYL (PF) 100 MCG/2 ML VIAL ONE (11:49)
[2019-02-08] MEDS ORDERED: *HR* Midazolam HCl 2 MG/2 ML VIAL ONE (11:49)
[2019-02-08] MEDS ORDERED: Isovue-300 50 ML VIAL IVP ONE (12:13)
--- NOTE | 2019-02-08 12:16 | IR Procedure Note ---
Date of procedure: 02/08/19 Consent Obtained: Verbal consent, Written consent Timeout: Correct patient and procedure verified, Correct site verified, Time out performed, Skin prep completed Was there an emergency veterinary assistant present: No Results/Findings: Left nephrostomy tube placement Estimated blood loss (cc): 1 Complications: None; Tolerated procedure well Indications: Left urteral obstruction Procedure Performed: Left nephrostomy tube placement Site/Technique: Left nephrostomy tube placed in VIR Results/Findings (any specimens removed): Severe left hydronephrosis Post Procedure Treatment Plan: Continue ER care Specimen: 10 cc clear urine
--- NOTE | 2019-02-08 14:59 | Internal Med History&Physical ---
Date of Encounter: 02/08/19 Time of Encounter: 14:54 Internal Medicine - H&P: HPI Chief complaint: Left groin and flank pain Admitted From: Emergency Dept Plans for Post Hospital Care: Home History of present illness: Ms. Pickens is a 58 year old female with known PMH of COPD, HTN, HLD and former smoker who has recurrent diverticulosis pt presented to ER with worsening Left groin pain , 8/10 in severoty, sharp pain radiating to left flank from last 3 days. Her groin pain associated with intractable nausea and vomiting. She did mention she has intermittent flare ups like this with Left groin pain from last 3 months, pt felt like they are diverticulosis flare ups. After coming to the ER she has CT of Abd / Pelvis done which showed Left-sided ureteric sciatic herniation causing severe left-sided hydronephrosis and hydroureter. Associated perinephric stranding and fluid, concerning for calyceal rupture. She also have diverticulosis without evidence of diverticulitis and Grade 2 anterolisthesis of L4 on L5. Pt was evaluated by Urologist in the ER who recommended Nephrostomy tube placement for now. She just had Nephrostomy tube placed in Left kidney. Pt stated she feels litte better now. Past Med Surg Social Fam HX - Past Medical History Medical history: COPD, hyperlipidemia, hypertension Psychiatric history: anxiety - Social History Smoking Status: Former smoker Smokeless Tobacco Status: No Alcohol use: rarely Drug use: none - Family History Mother Hx Family Cardiac Disorders: Yes (Hypertension) Hx Family Endocrine Disorder: Yes (DM) Internal Medicine - H&P: Meds ALPRAZolam [Xanax 1 MG Tablet] 1 mg PO TID 12/23/17 [History] Atorvastatin [Lipitor] 40 mg PO HS 12/23/17 [History] Cholecalciferol (Vitamin D3) [Vitamin D] 1,000 unit PO DAILY 12/23/17 [History] Lisinopril [Zestril] 20 mg PO DAILY 12/23/17 [History] Metoprolol [Lopressor] 50 mg PO DAILY 12/23/17 [History] [place]-3 Fatty Acids [Fish Oil Concentrate] 2,000 mg PO BID 12/23/17 [History] Allergy/AdvReac Type Severity Reaction Status Date / Time codeine Allergy Vomiting Verified 12/23/17 14:22 Sulfa (Sulfonamide Allergy Hives Verified 12/23/17 14:22 Antibiotics) All Systems PM: A 10-system review of systems was performed and is negative for pertinent findings except as documented above in the HPI. Review of systems: All the systems are reviewed everything is benign except the systems and symptoms I mentioned in the history of present illness - Constitutional Vitals: Temp Pulse Resp BP Pulse Ox 98.0 F 83 15 124/75 92 02/08/19 14:03 02/08/19 14:03 02/08/19 14:03 02/08/19 14:03 02/08/19 14:03 General appearance: Present: cooperative, mild distress (with pain), A&O X 3, answers questions appropriately Exam: a - Head Head exam: Present: atraumatic, normal inspection - Neck Neck exam general surgery: Present: supple - Respiratory Respiratory exam: Absent: respiratory distress, rhonchi, wheezes - Cardiovascular Cardiovascular exam: Present: RRR, +S1, +S2. Absent: tachycardia - GI/Abdominal GI/Abdominal exam: Present: normal bowel sounds, soft. Absent: rebound, rigid, tenderness - Extremities Exam Extremities exam: Present: normal inspection. Absent: calf tenderness, pedal edema, tenderness - Back Exam Back exam: Present: CVA tenderness (R). Absent: vertebral tenderness - Neurological Exam Neurological exam: Present: alert, CN II-XII intact, oriented X3 - Psychiatric Psychiatric exam: Present: normal affect, normal mood - Skin Skin exam: Absent: rash Internal Med - H&P Results - Labs CBC & Chem 7: 02/09/19 07:12 02/09/19 07:12 Labs: Short CBC 02/08/19 Range/Units 05:45 WBC 10.9 (4.3-11.1) K/mcL Hgb 13.4 (11.5-15.4) g/dL Hct 40.2 (35.3-44.9) % Plt Count 156 (140-400) K/mcL Neutrophils # 7.8 (1.6-8.9) K/mcL BMP 02/08/19 05:45 Sodium 142 Potassium 4.1 Chloride 103 Carbon Dioxide 29 BUN 26 H Creatinine 1.25 H Glucose 116 H Calcium 10.1 Liver Function 02/08/19 Range/Units 05:45 Total Bilirubin 0.4 (0.3-1.0) mg/dL Direct Bilirubin 0.1 (0.0-0.2) mg/dL AST 18 (13-39) Units/L ALT 13 (7-52) Units/L Alkaline Phosphatase 77 (34-104) Units/L Albumin 4.2 (3.5-5.7) g/dL Urine 02/08/19 Range/Units 08:40 Urine Color Yellow (Yellow) Urine Clarity Cloudy A (Clear) Urine pH 7.5 (5.0-8.0) pH Units Ur Specific [place] 1.027 H (1.010-1.025) Urine Protein Negative (Neg-Trace) mg/dL Urine Glucose (UA) Normal (Normal) mg/dL - Impressions ITS Impressions Nephrostomy 02/08/19 00:00 IMPRESSION: Successful percutaneous nephrostomy tube placement secondary to obstruction of the distal right ureter, which is secondary to a herniated segment of the ureter, which was seen on the earlier CT exam. No immediate complications. D/ / 02/08/2019 13:56:11 Imer Fuentes MD / luis miguel benitez Interpreting Provider: Imer Fuentes MD Abdomen/Pelvis CT 02/08/19 05:50 IMPRESSION: 1. 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 Associated perinephric stranding and fluid, concerning for calyceal rupture. 2. Diverticulosis without evidence of diverticulitis. 3. Grade 2 anterolisthesis of L4 on L5. Findings were discussed with Dr.Sam Tee at 8:52 am on 02/08/2019. D/ / 02/08/2019 08:56:50 Carito Benjamin MD / Radha Wang Interpreting Provider: Carito Benjamin MD - Assessment and Plan (1) Hydronephrosis, left Current Visit: Yes Status: Acute Assessment and plan: Place the pt into Med Surg for observation Reviewed her CT of Abd / Pelvis - Left-sided ureteric sciatic herniation causing severe left-sided hydronephrosis and hydroureter. Associated perinephric stranding and fluid, concerning for calyceal rupture. She does have a hernia of ureter through the sciatic foramen For now she had Left Nephrostomy tube placed by IR Does have mild hematuria due to procedure cont close monitoring on prophylactic abx - Rocephin IV hydration IV analgesics Appreciate Urology recommendations Once her pain get stabilizes, she may d/c home with Nephrostomy tube and eventually need to f/u at [facility] for further care for her hernia of ureter through the sciatic foramen. Appreciate urology recommendations and help in this pt's care (2) Intractable nausea and vomiting Current Visit: Yes Status: Acute Assessment and plan: on IV Zofran Qualifiers: Vomiting type: unspecified Qualified Code(s): R11.2 - Nausea with vomiting, unspecified (3) Sciatic hernia Current Visit: Yes Status: Acute (4) DO (acute kidney injury) Current Visit: Yes Status: Acute Assessment and plan: Due to dehydration and possible obstructive uropathy On IV hydration trend on Cr (5) Anxiety Current Visit: Yes Status: Chronic Assessment and plan: resumed home meds (6) HLD (hyperlipidemia) Current Visit: Yes Status: Chronic Assessment and plan: on statin Qualifiers: Hyperlipidemia type: unspecified Qualified Code(s): E78.5 - Hyperlipidemia, unspecified - Time Spent With Patient Total time spent is greater than 50% in coordination of care (as documented) at patient's floor/unit and/or counseling patient:
[2019-02-08] MEDS: ALPRAZolam 1 MG TABLET PO SCH ×2 (16:10→20:56)
[2019-02-08] MEDS: 0.9 % Sodium Chloride 1,000 ML IVC SCH (16:10)
[2019-02-08] MEDS: Lisinopril 20 MG TABLET PO SCH (16:10)
[2019-02-08] MEDS: Ketorolac 15 MG/ML VIAL IVP PRN (20:57)
[2019-02-08] MEDS ORDERED: [UNRECOGNIZED DRUG - OTHER] PO SCH (21:00)
[2019-02-09] MEDS: 0.9 % Sodium Chloride 1,000 ML IVC SCH (05:13)
--- NOTE | 2019-02-09 07:08 | Urology Progress Note ---
Date of Encounter: 02/09/19 Time of Encounter: 07:04 - Assessment and Plan (1) Hydronephrosis, left Current Visit: Yes Status: Acute Assessment and plan: 58-year-old woman with a left ureteric sciatic foramen hernia. She had a left nephrostomy tube placed. It appears that placement of the wire down her ureter allowing the ureter to be reduced out of the hernia. Today, I would like to repeat her CT scan of the abdomen and pelvis without IV contrast to confirm that the ureter has been reduced out of the hernia. We will continue her nephrostomy tube upon discharge. If her ureter is within the normal anatomic position, it may be reasonable to proceed with an outpatient cystoscopy and left ureteral stent placement in order to free her of the nephrostomy tube. As for long-term management, we could leave an indwelling stent placed for 6 weeks and then remove it. Observation would be an option after that. Alternat ively, referral for definitive repair of sciatic foramen hernia would be an option as an outpatient. We will reassess her after the CT scan today. Urology will continue to follow along. Appreciate internal medicine support. (2) Sciatic hernia Current Visit: Yes Status: Acute Progress Note Narrative: 58-year-old woman with a left ureteric sciatic foramen hernia is seen in follow- up. She had a left nephrostomy tube placed yesterday. In review of her films it appears that the wire has allowed the ureter to be reduced out of the hernia and it appears to be more in the normal anatomic position. Her nephrostomy tube is draining clear. I did review her case with some my colleagues. She says she is feeling well. Her pain has resolved. Objective Initial Vital Signs Temp Pulse Resp BP Pulse Ox 97.5 F L 76 20 181/96 95 02/08/19 05:34 02/08/19 05:34 02/08/19 05:34 02/08/19 05:34 02/08/19 05:34 - General physical appearance Present: well developed, well nourished, no distress - Respiratory Absent: normal respiratory effort - Abdomen Present: soft - Genitourinary Urine Appearance: Present: Clear (Nephrostomy tube in place with clear urine.) - Labs 02/08/19 05:45 02/08/19 05:45 Consult Discharge Plan - Plan Referrals: Dary Mckeon [Primary Care Provider] -
[2019-02-09 07:45] LABS: Hematocrit 35.6 % (35.3-44.9); Mean Corpuscular HGB Conc 32.3 g/dL (31.6-35.5); Mean Corpuscular Hemoglobin 29.6 pg (28.0-33.3); Mean Corpuscular Volume 91.8 fL (83.0-100.0); Mean Platelet Volume 12.6 fL (9.4-12.4); Platelet Count 109 K/mcL (140-400); Red Blood Count 3.88 M/mcL (3.82-4.97); White Blood Count 6.8 K/mcL (4.3-11.1)
[2019-02-09 08:00] LABS: Hemoglobin 11.5 g/dL (11.5-15.4)
[2019-02-09 08:06] LABS: Calcium 8.3 mg/dL (8.6-10.3); Potassium 4.3 mEq/L (3.5-5.1)
[2019-02-09] MEDS: Lisinopril 20 MG TABLET PO SCH (08:38)
[2019-02-09] MEDS: ALPRAZolam 1 MG TABLET PO SCH (08:38)
[2019-02-09] MEDS: Ketorolac 15 MG/ML VIAL IVP PRN (08:43)
[2019-02-09] MEDS ORDERED: Cholecalciferol (D-3) 1,000 UNIT TABLET PO SCH (09:00)
--- NOTE | 2019-02-09 11:49 | Event Note ---
Date of Encounter: 02/09/19 Time of Encounter: 11:45 In to see patient. Patient's son is at bedside. I reviewed reassuring CT findings with patient and her son. Ureteral herniation appears to be less pronounced, and hydronephrosis is resolving with nephrostomy tube. We will plan to see Ms. Pickens within 1 week and proceed with outpatient cystoscopy and left ureteral stent placement as well as removal of left nephrostomy tube. Patient is aware she will be referred to Dr. Morse at [facility] for definitive repair. [facility] will contact patient for prompt follow-up appointment. Patient will need leg bag with straps and nephrostomy tube care instructions by nursing staff. Patient may be discharged from urologic standpoint. Hospitalist paged for update.
[2019-02-09 14:03] VITALS: BP 133/77
--- NOTE | 2019-02-09 15:48 | Discharge Summary ---
Date of Encounter: 02/09/19 Time of Encounter: 11:00 - Discharge Diagnosis (1) DO (acute kidney injury) Priority: Primary Status: Acute (2) Hydronephrosis, left Priority: Primary Status: Acute (3) Sciatic hernia Priority: Secondary Status: Acute (4) Intractable nausea and vomiting Priority: Secondary Status: Acute Qualifiers: Vomiting type: unspecified Qualified Code(s): R11.2 - Nausea with vomiting, unspecified (5) Anxiety Priority: Secondary Status: Chronic (6) HLD (hyperlipidemia) Priority: Secondary Status: Chronic Qualifiers: Hyperlipidemia type: unspecified Qualified Code(s): E78.5 - Hyperlipidemia, unspecified Hospital course: Patient is a 58-year-old female with past medical history significant for COPD, HTN, HLD and former smoker who has recurrent diverticulosis pt presented to ER with worsening Left groin pain , 8/10 in severoty, sharp pain radiating to left flank from last 3 days. After coming to the ER she has CT of Abd / Pelvis done which showed Left-sided ureteric sciatic herniation causing severe left-sided hydronephrosis and hydroureter. Associated perinephric stranding and fluid, concerning for calyceal rupture. During patients hospital stay urology was consulted and patient status post nephrostomy tube placed in the left kidney. Patient will be discharged to follow-up with urology as outpatient. - Time Spent with Patient Total time spent providing and/or coordinating discharge services: - Discharge Medications Prescriptions: Continued Atorvastatin [Lipitor] 40 mg PO QPM ALPRAZolam [Xanax 1 MG Tablet] 1 mg PO TID PRN PRN Reason: Anxiety Albuterol Sulfate [Ventolin Hfa] 1 puff IH Q6H PRN PRN Reason: Shortness Of Breath Beclomethasone Dip 40mcg REDIH [Qvar 40 Mcg Redihaler] 2 puff IH DAILY PRN PRN Reason: Shortness Of Breath Ibuprofen 1,600 mg PO DAILY PRN PRN Reason: Pain Losartan Potassium [Cozaar] 50 mg PO BID Metoprolol Succinate [Toprol Xl] 50 mg PO DAILY Home Medications: ALPRAZolam [Xanax 1 MG Tablet] 1 mg PO TID PRN 12/23/17 [History] Atorvastatin [Lipitor] 40 mg PO QPM 12/23/17 [History] Albuterol Sulfate [Ventolin Hfa] 1 puff IH Q6H PRN 02/09/19 [History] Beclomethasone Dip 40mcg REDIH [Qvar 40 Mcg Redihaler] 2 puff IH DAILY PRN 02/09/19 [History] Ibuprofen 1,600 mg PO DAILY PRN 02/09/19 [History] Losartan Potassium [Cozaar] 50 mg PO BID 02/09/19 [History] Metoprolol Succinate [Toprol Xl] 50 mg PO DAILY 02/09/19 [History] Allergies/Adverse Reactions: Allergy/AdvReac Type Severity Reaction Status Date / Time codeine Allergy See Verified 02/09/19 09:05 Comments Sulfa (Sulfonamide Allergy Hives Verified 02/09/19 09:05 Antibiotics) Date of admission: 02/08/19 11:56 Primary care physician: Dary Mckeon Consults: 02/08/19 09:20 Consult to Interventional Radiology [CONS] Stat Consulting Provider: Radiology Interventional Cols Reason for Consult: Severe Hydronephrosis, Calyceal rupture. Nephrostomy tube placement Time Notified: 09:20 Call Completed: No - Constitutional Vitals: Temp Pulse Resp BP Pulse Ox 98.1 F 70 14 133/77 94 02/09/19 13:58 02/09/19 13:58 02/09/19 13:58 02/09/19 13:58 02/09/19 13:58 General appearance: Present: cooperative, mild distress (with pain), A&O X 3, answers questions appropriately Exam: Gen.: Nonacute distress, alert and oriented 3 Skin: Normal color - Patient Status Disposition: Home, Self-Care Condition: Fair - Discharge Instructions Instructions: Acute Kidney Injury (DC), Hydronephrosis (DC) Follow Up With: Dary Mckeon [Primary Care Provider] -
== END 2019-02-09 16:20 | disposition home or self-care (01) ==
LOC: 3ANU 05:18 → EMEROOARM 05:18 → 3ANU 12:34
PROVIDERS: ADMIT Internal Medicine Nephrology; ATTEND Internal Medicine Nephrology